=== PATIENT | female | born 1985 | race Caucasian/White ===

== ENCOUNTER 2021-12-05 07:57 | Emergency (ER) | payer MEDICAID ==
[~2021-12-05] VITALS: Ht 167.6 cm; Wt 84.0 kg
[2021-12-05] MEDS ORDERED: SODIUM CHLORIDE 0.9% 1,000 ML IV ONE ×2 (08:45→11:45)
[2021-12-05 09:09] LABS: CLARITY URINE CLEAR (CLEAR); COLOR URINE YELLOW (YELLOW); KETONES URINE NEGATIVE (NEGATIVE); LEUKOCYTE ESTERASE URINE NEGATIVE (NEGATIVE); NITRITE URINE NEGATIVE (NEGATIVE); OCCULT BLOOD URINE NEGATIVE (NEGATIVE); PH URINE 6.5 (4.5-8.0); PROTEIN URINE NEGATIVE (NEGATIVE); SPECIFIC GRAVITY URINE 1.013 (1.005-1.030); UROBILINOGEN URINE 0.2 E.U./dL (0.2-1.0)
[2021-12-05 09:26] LABS: *BARBITURATES SCREEN URINE NEGATIVE (NEGATIVE); *BENZODIAZEPINES SCREEN URINE NEGATIVE (NEGATIVE); *COCAINE SCREEN URINE NEGATIVE (NEGATIVE); METHADONE URINE SCREEN NEGATIVE (NEGATIVE)
[2021-12-05 09:27] LABS: *AMPHETAMINES SCREEN URINE NEGATIVE (NEGATIVE); CANNABINOID URINE SCREEN NEGATIVE (NEGATIVE); OPIATES URINE SCREEN NEGATIVE (NEGATIVE); PHENCYCLIDINE URINE SCREEN NEGATIVE (NEGATIVE)
[2021-12-05 09:32] LABS: BASOPHILS % 0.4 % (0.0-2.0); HEMATOCRIT. 42.9 % (36.0-48.0); HEMOGLOBIN. 15.3 g/dL (12.0-16.0); LYMPHOCYTES % 23.4 % (20.0-50.0); MEAN CORPUSCULAR HEMOGLOBIN 32.5 pg (28.0-32.0); MEAN CORPUSCULAR VOLUME 91.1 fL (81.0-99.0); MEAN PLATELET VOLUME 7.6 fl (7.4-10.4); MONOCYTES % 6.1 % (2.0-8.0); NEUTROPHILS % 68.1 % (40.0-76.0); PLATELET 264 x1000/uL (130-400); RED BLOOD CELL COUNT 4.71 mill/uL (4.2-5.4); RED CELL DISTRIBUTION WIDTH 13.3 % (11.6-14.6)
[2021-12-05 09:39] LABS: CHLORIDE 107 mEq/L (98-107)
[2021-12-05 09:44] LABS: ETHANOL BLOOD < 10 mg/dL
[2021-12-05 09:47] LABS: CREATINE KINASE 91 IU/L (26-192)
[2021-12-05 09:48] LABS: HCG SCREEN NEGATIVE
[2021-12-05 11:21] LABS: BG BASE EXCESS -2.3 mmol/L (-2.0-2.0); BG CARBOXYHEMOGLOBIN 0.6 % (0.5-1.5); BG DEOXYHEMOGLOBIN 2.2 % (0.0-5.0); BG FRACTION INSPIRED OXYGEN 21; BG METHEMOGLOBIN 0.3 % (0.0-1.5); BG OXYGEN SATURATION 97.8 % (92.0-98.5); BG OXYHEMOGLOBIN 96.9 % (94.0-97.0); BG PCO2 28.6 mmHg (35.0-45.0); BG PH 7.463 (7.350-7.450); BG PO2 96.4 mmHg (75.0-100.0); BG SAMPLE SITE LEFT RADIAL; BG TOTAL HEMOGLOBIN 15.3 g/dL (12.0-18.0); BG VENT MODE ROOM AIR
[2021-12-05 11:26] VITALS: BP 145/86
[2021-12-05] MEDS ORDERED: KETOROLAC 15MG/ML VIAL IV ONE (11:45)
== END 2021-12-05 12:23 | disposition home or self-care (01) ==
LOC: ER 07:57
DX: Z13.9 Encounter for screening, unspecified (principal); R00.2 Palpitations; Z88.0 Allergy status to penicillin
CPT/HCPCS: 36415; 36600; 71045; 80048; 80076; 80305; 80307; 80320; 80329; 81003; 82375; 82550; 82805; 84484; 84703; 85025; 93005; 96360; 96361; 99285; J7030; Z7610; G0480

== ENCOUNTER 2021-12-18 08:57 | Emergency (ER) | payer MEDICAID ==
[~2021-12-18] VITALS: Ht 167.6 cm; Wt 84.0 kg
[2021-12-18 11:31] LABS: BASOPHILS % 0.4 % (0.0-2.0); EOSINOPHILS % 2.3 % (0.0-5.0); HEMATOCRIT. 42.9 % (36.0-48.0); HEMOGLOBIN. 14.9 g/dL (12.0-16.0); LYMPHOCYTES % 16.8 % (20.0-50.0); MEAN CORPUSCULAR HEMOGLOBIN 32.1 pg (28.0-32.0); MEAN CORPUSCULAR VOLUME 92.1 fL (81.0-99.0); MEAN PLATELET VOLUME 7.6 fl (7.4-10.4); MONOCYTES % 7.5 % (2.0-8.0); PLATELET 255 x1000/uL (130-400); RED BLOOD CELL COUNT 4.66 mill/uL (4.2-5.4); RED CELL DISTRIBUTION WIDTH 13.2 % (11.6-14.6)
[2021-12-18 11:39] LABS: CHLORIDE 102 mEq/L (98-107)
[2021-12-18 11:49] LABS: B-HCG QUANTITATIVE < 1 mIU/mL (<3)
[2021-12-18] MEDS: KETOROLAC 15MG/ML VIAL IM ONE ×2 (13:02→13:04)
[2021-12-18 13:04] VITALS: BP 129/89
== END 2021-12-18 13:04 | disposition home or self-care (01) ==
LOC: ER 08:57
DX: R07.89 Other chest pain (principal); Z87.01 Personal history of pneumonia (recurrent)
CPT/HCPCS: 36415; 71045; 71250; 80053; 84484; 84702; 85025; 93005; 99285; J1885

== ENCOUNTER 2021-12-19 14:29 | Emergency (ER) | payer MEDICAID ==
[~2021-12-19] VITALS: Ht 167.6 cm; Wt 85.0 kg
[2021-12-19 14:32] VITALS: BP 124/82
[2021-12-19 17:33] LABS: BASOPHILS % 0.4 % (0.0-2.0); EOSINOPHILS % 0.8 % (0.0-5.0); HEMATOCRIT. 42.9 % (36.0-48.0); LYMPHOCYTES % 17.4 % (20.0-50.0); MEAN CORPUSCULAR HEMOGLOBIN 32.1 pg (28.0-32.0); MEAN CORPUSCULAR VOLUME 92.1 fL (81.0-99.0); MEAN PLATELET VOLUME 7.5 fl (7.4-10.4); MONOCYTES % 8.3 % (2.0-8.0); NEUTROPHILS % 73.1 % (40.0-76.0); PLATELET 265 x1000/uL (130-400); RED BLOOD CELL COUNT 4.66 mill/uL (4.2-5.4); RED CELL DISTRIBUTION WIDTH 13.1 % (11.6-14.6)
[2021-12-19 17:41] LABS: CHLORIDE 103 mEq/L (98-107)
== END 2021-12-19 20:19 | disposition left against medical advice (07) ==
LOC: ER 14:29
DX: R07.89 Other chest pain (principal); R42 Dizziness and giddiness; E78.00 Pure hypercholesterolemia, unspecified; Z88.0 Allergy status to penicillin
CPT/HCPCS: 36415; 71045; 80053; 83880; 84443; 84484; 85025; 93005; 99285

== ENCOUNTER 2022-03-30 01:57 | Emergency (ER) | payer MEDICAID ==
[~2022-03-30] VITALS: Ht 167.6 cm; Wt 87.0 kg
[2022-03-30 02:03] VITALS: BP 138/72
[2022-03-30 04:36] LABS: BG CARBOXYHEMOGLOBIN 0.3 % (0.5-1.5); BG DEOXYHEMOGLOBIN 3.3 % (0.0-5.0); BG FRACTION INSPIRED OXYGEN 21; BG HCO3 ACT 24.2 mmol/L (22.0-26.0); BG METHEMOGLOBIN 0.3 % (0.0-1.5); BG OXYGEN SATURATION 96.7 % (92.0-98.5); BG OXYHEMOGLOBIN 96.1 % (94.0-97.0); BG PH 7.421 (7.350-7.450); BG PO2 87.1 mmHg (75.0-100.0); BG SAMPLE SITE RIGHT RADIAL; BG TOTAL HEMOGLOBIN 15.2 g/dL (12.0-18.0); BG VENT MODE ROOM AIR
== END 2022-03-30 04:53 | disposition home or self-care (01) ==
LOC: ER 02:21
DX: F41.9 Anxiety disorder, unspecified (principal); E78.00 Pure hypercholesterolemia, unspecified; Z88.0 Allergy status to penicillin
CPT/HCPCS: 36600; 82375; 82805; 93005; 99284

== ENCOUNTER 2023-07-23 09:22 | Emergency (ER) | payer MEDICAID ==
[~2023-07-23] VITALS: Ht 165.1 cm; Wt 95.0 kg
[2023-07-23 09:25] VITALS: O2SAT 99
[2023-07-23] MEDS ORDERED: IBUPROFEN 600MG TABLET PO STA (09:43)
[2023-07-23 12:55] VITALS: BP 124/85; PULSE 84; RESP 20; TEMP 97.7
[2023-07-23 17:11] LABS: *AMPHETAMINES SCREEN URINE NEGATIVE (NEGATIVE); *BARBITURATES SCREEN URINE NEGATIVE (NEGATIVE); *BENZODIAZEPINES SCREEN URINE NEGATIVE (NEGATIVE); *COCAINE SCREEN URINE NEGATIVE (NEGATIVE); CANNABINOID URINE SCREEN NEGATIVE (NEGATIVE); ECSTASY MDMA SCREEN URINE NEGATIVE (NEGATIVE); OPIATES URINE SCREEN NEGATIVE (NEGATIVE); PHENCYCLIDINE URINE SCREEN NEGATIVE (NEGATIVE)
== END 2023-07-23 12:57 | disposition home or self-care (01) ==
LOC: ER 10:30
DX: R51.9 Headache, unspecified (principal); E78.00 Pure hypercholesterolemia, unspecified; Z88.0 Allergy status to penicillin; Z98.890 Other specified postprocedural states
CPT/HCPCS: 80305; 81025; 99284